=== PATIENT | male | born 1955 | race African-American/Black ===

== ENCOUNTER 2016-04-28 03:44 | Inpatient (IN) | payer OTHER ==
[~2016-04-28] VITALS: Ht 175.3 cm; Wt 80.4 kg
[~2016-04-28 03:44] MED LIST: AMOX1TAB61 PO; ASPI81TA2 PO; CARV12.5 PO; CARV40CP PO; CELE100C PO; CELE200C PO; DABI150C PO; DOXE100C PO; DOXE50CA PO; FERR-26 PO; FERR325T3 PO; FLUT1DIS3 IH; FURO40TA4 PO; HYDR-2868 PO; HYDR-2869 PO; LEVO50TA PO; LEVO50TA5 PO; LOSA100T6 PO; LOSA50TA6 PO; METO100T2 PO; MIRT30TA2 PO; NAPR500T3 PO; OXYC-250 PO; POTA20TA12 PO; POTA20TA82 PO; RANI150T2 PO; SOTA80TA PO; VENTOLIN HFA18 GM IH; VENTOLIN HFA18 GM INH
[2016-04-28 04:22] LABS: BASO % 1 % (0-3); EOS % 0 % (0-3); HEMATOCRIT 36.7 % (39.0-53.0); HEMOGLOBIN 11.7 g/dL (13.0-17.5); LYMPH # 0.4 x10^3/uL (1.0-4.8); LYMPH % 8 % (24-48); MEAN CORPUSCULAR HEMOGLOBIN 32 pg (25-35); MEAN CORPUSCULAR HGB CONC 32 g/dL (31-37); MEAN CORPUSCULAR VOLUME 99 fL (79-100); MONO % 10 % (0-9); NEUT % 82 % (31-73); PLATELET COUNT 121 x10^3/uL (140-400); RED CELL DISTRIBUTION WIDTH 15.3 % (11.5-14.5); WHITE BLOOD COUNT 4.9 x10^3/uL (4.0-11.0)
[2016-04-28] MEDS ORDERED: IPRATRPIUM/ALBUTEROL 0.5/2.5MG 3 ML NEBU. NEB ONE (04:30)
[2016-04-28 04:31] LABS: INR 1.5 (0.8-1.1)
[2016-04-28 04:34] LABS: CREATININE 1.3 mg/dL (0.7-1.3); GFR 67.7; POTASSIUM 4.8 mmol/L (3.5-5.1)
[2016-04-28 04:40] LABS: ALBUMIN 3.3 g/dL (3.4-5.0); ALBUMIN/GLOBULIN RATIO 0.6 (1.0-1.7); TOTAL BILIRUBIN 1.4 mg/dL (0.2-1.0); TOTAL PROTEIN 9.3 g/dL (6.4-8.2)
[2016-04-28 04:45] LABS: OBC FLU VALID
[2016-04-28] MEDS ORDERED: NITROGLYCERIN SUBLINGUAL 0.4 MG BOTTLE OF 25. SL PRN (05:00)
[2016-04-28] MEDS: MORPHINE SULFATE 4 MG/ML DISP.SYRIN. IV/SQ PRN ×2 (05:02→07:44)
[2016-04-28] MEDS ORDERED: CONTRAST GIVEN MC PRN (05:15)
[2016-04-28] MEDS ORDERED: FUROSEMIDE 40 MG/4 ML VIAL IVP ONE (05:15)
[2016-04-28] MEDS ORDERED: BENZONATATE 100 MG CAPSULE. PO ONE ×2 (05:15→12:45)
[2016-04-28] MEDS ORDERED: IOHEXOL 300 MG/ML 75 ML VIAL IV ONE (05:30)
[2016-04-28 05:31] LABS: BILIRUBIN,URINE SMALL (NEG); GLUCOSE,URINE NEGATIVE (NEG); NITRITE,URINE NEGATIVE (NEG); PROTEIN,URINE 30 mg/dL (NEG-TRACE)
[2016-04-28 05:36] LABS: BACTERIA,URINE 0 /HPF (0-FEW); SQUAMOUS EPITHELIAL CELL,UR MOD /LPF
--- NOTE | 2016-04-28 05:59 | RAD ---
PROCEDURE CT chest with contrast, pulmonary angiogram. HISTORY Shortness of air and cough. History DVT. TECHNIQUE Helical CT imaging of the chest is performed after 75 cc Omnipaque 300 IV contrast using pulmonary angiogram protocol. A coronal 3D MIP reconstruction is performed to better evaluate the pulmonary arteries. PQRS: One or more the following individualized dose reduction techniques were utilized for the study: 1. Automated exposure control. 2. Adjustment of the mA and/or kV according to patient size. 3. Use of iterative reconstruction technique. COMPARISON CT chest with contrast, pulmonary angiogram September 14, 2014. FINDINGS The pulmonary arteries are adequate contrast opacified. No CT evidence of pulmonary embolus. Cannot evaluate the lumen of the thoracic aorta due to limited contrast opacification. The great vessels are stable. Re- demonstrated nonunion at median sternotomy. There are upper median sternotomy wires. No obvious adenopathy in the chest. Subcentimeter bilateral hilar lymph nodes. Three vessel coronary artery disease. Changes of prior CABG. Stable cardiomegaly. Small pericardial effusion. Trace right pleural effusion. Paraseptal emphysema. Respiratory motion artifact in the lung bases. Mild bilateral lower lobe atelectasis. Upper lobe centrilobular nodules are still present. Extent is improved from prior study. Upper abdominal ascites. Cholecystectomy. There partially healed left anterolateral rib fractures. No compression fracture in the thoracic spine. IMPRESSION 1. No CT evidence of pulmonary embolus. 2. Upper lobe centrilobular nodules are improved. Differential considerations as per prior study. 3. Trace right pleural effusion. 4. Stable cardiomegaly. Small pericardial effusion. 5. Mild upper abdominal ascites. Electronically signed by: Miles Herbert MD (Apr 28, 2016 05:58:27)
[2016-04-28 06:29] LABS: PLT ESTIMATE DECREASED (ADEQUATE)
--- NOTE | 2016-04-28 07:48 | ED.ADGEN ---
Past Medical History Past Medical History: Bronchitis, CAD, COPD, CVA, Diabetes-Type II, High Cholesterol, Hypertension, PA Past Surgical History: Cholecystectomy, Coronary Bypass Surgery, Hip Replacement, Pacemaker, Other Additional Past Surgical Histo: MULTIPLE,BILAT HIP Alcohol Use: Occasionally Drug Use: None Adult General Chief Complaint Chief Complaint: SHORTNESS OF BREATH HPI HPI Patient is a 61 year old man, history of CAD, CHF, type 2 diabetes mellitus, hypertension, who presents emergency department via EMS with a complaint of cough, shortness of breath, and chest pain and pressure, that "feels like a brick on my chest". Patient states that beginning strains increasing shortness of breath and cough is productive of "foamy white stuff" yesterday. States had some increased swelling in his lower extremities as well. Potential subjective fevers, no chills, no nausea or vomiting, no sick contacts, no weakness numbness or tingling, no injuries. No complaints. Patient states he's been compliant with medications including his Lasix. Denies any recent travel or surgery, no history of DVT or PE. Review of Systems Review of Systems Constitutional: Denies fever or chills. [] Eyes: Denies change in visual acuity. [] HENT: Denies nasal congestion or sore throat. [] Respiratory: Cough and shortness of breath. Cardiovascular: Chest heaviness, cough, edema. GI: Denies abdominal pain, nausea, vomiting, bloody stools or diarrhea. [] : Denies dysuria. [] Musculoskeletal: Denies back pain or joint pain. [] Integument: Denies rash. [] Neurologic: Denies headache, focal weakness or sensory changes. [] Endocrine: Denies polyuria or polydipsia. [] Lymphatic: Denies swollen glands. [] Psychiatric: Denies depression or anxiety. [] Current Medications Current Medications Current Medications Medications (Trade) Dose Ordered Sig/Edilia Start Time Stop Time Status Last Admin Dose Admin Albuterol/ Ipratropium (Duoneb) 3 ml 1X ONCE 04/28/16 04:30 04/28/16 04:42 DC 04/28/16 04:37 3 ML Benzonatate (Tessalon Perle) 100 mg 1X ONCE 04/28/16 05:15 04/28/16 05:16 DC 04/28/16 05:01 100 MG Furosemide (Lasix) 80 mg 1X ONCE 04/28/16 05:15 04/28/16 05:16 DC 04/28/16 05:10 80 MG Info (Do NOT chart on this entry -- for MONITORING) 1 each PRN DAILY PRN 04/28/16 05:15 04/30/16 05:14 Iohexol (Omnipaque 300 Mg/ml) 75 ml 1X ONCE 04/28/16 05:30 04/28/16 05:31 DC Morphine Sulfate 4 mg PRN Q15MIN PRN 04/28/16 05:00 04/29/16 04:59 04/28/16 05:02 4 MG Nitroglycerin (Nitrostat) 0.4 mg PRN Q5MIN PRN 04/28/16 05:00 04/28/16 05:08 0.4 MG Allergies Allergies Allergies Coded Allergies Type Severity Reaction Last Updated Verified No Known Drug Allergies 03/16/13 No Physical Exam Physical Exam Constitutional: Well developed, well nourished, no acute distress, non-toxic appearance. [] HENT: Normocephalic, atraumatic, bilateral external ears normal, oropharynx moist, no oral exudates, nose normal. [] Eyes: PERRLA, EOMI, conjunctiva normal, no discharge. [] Neck: Normal range of motion, no tenderness, supple, no stridor. [] Cardiovascular:Heart rate regular rhythm, no murmur [] Lungs & Thorax: Bilateral breath sounds clear to auscultation [] Abdomen: Bowel sounds normal, soft, no tenderness, no masses, no pulsatile masses. [] Skin: Warm, dry, no erythema, no rash. [] Back: No tenderness, no CVA tenderness. [] Extremities: No tenderness, no cyanosis, no clubbing, ROM intact, no edema. [] Neurologic: Alert and oriented X 3, normal motor function, normal sensory function, no focal deficits noted. [] Psychologic: Affect normal, judgement normal, mood normal. [] Current Patient Data Vital Signs Vital Signs Date Time Temp Pulse Resp B/P Pulse Ox O2 Delivery O2 Flow Rate FiO2 04/28/16 06:00 90 88 Nasal Cannula 3 04/28/16 05:45 170/97 04/28/16 05:02 26 04/28/16 03:51 100.6 100.6 Lab Values Laboratory Tests Test 04/28/16 04:12 04/28/16 04:23 04/28/16 05:20 White Blood Count 4.9x10^3/uL (4.0-11.0) Red Blood Count 3.70x10^6/uL (4.30-5.70) L Hemoglobin 11.7g/dL (13.0-17.5) L Hematocrit 36.7% (39.0-53.0) L Mean Corpuscular Volume 99fL (79-100) Mean Corpuscular Hemoglobin 32pg (25-35) Mean Corpuscular Hemoglobin Concent 32g/dL (31-37) Red Cell Distribution Width 15.3% (11.5-14.5) H Platelet Count 121x10^3/uL (140-400) L Neutrophils (%) (Auto) 82% (31-73) H Lymphocytes (%) (Auto) 8% (24-48) L Monocytes (%) (Auto) 10% (0-9) H Eosinophils (%) (Auto) 0% (0-3) Basophils (%) (Auto) 1% (0-3) Neutrophils # (Auto) 4.0x10^3uL (1.8-7.7) Lymphocytes # (Auto) 0.4x10^3/uL (1.0-4.8) L Monocytes # (Auto) 0.5x10^3/uL (0.0-1.1) Eosinophils # (Auto) 0.0x10^3/uL (0.0-0.7) Basophils # (Auto) 0.0x10^3/uL (0.0-0.2) Segmented Neutrophils % 85% (35-66) H Lymphocytes % 4% (24-48) L Monocytes % 11% (0-10) H Platelet Estimate Decreased (ADEQUATE) Prothrombin Time 17.0SEC (11.7-14.0) H Prothrombin Time INR 1.5 (0.8-1.1) H D-Dimer (Debbi) 1.16ug/mlFEU (0.00-0.50) H Sodium Level 137mmol/L (136-145) Potassium Level 4.8mmol/L (3.5-5.1) Chloride Level 102mmol/L (98-107) Carbon Dioxide Level 22mmol/L (21-32) Anion Gap 13 (6-14) Blood Urea Nitrogen 21mg/dL (8-26) Creatinine 1.3mg/dL (0.7-1.3) Estimated GFR (Cockcroft-Gault) 67.7 BUN/Creatinine Ratio 16 (6-20) Glucose Level 74mg/dL (70-99) Calcium Level 9.0mg/dL (8.5-10.1) Total Bilirubin 1.4mg/dL (0.2-1.0) H Aspartate Amino Transferase (AST) 45U/L (15-37) H Alanine Aminotransferase (ALT) 19U/L (16-63) Alkaline Phosphatase 76U/L (46-116) Troponin I Quantitative < 0.017ng/mL (0.000-0.055) BP-Mse-M-Type Natriuretic Peptide 4025pg/mL (0-124) H Total Protein 9.3g/dL (6.4-8.2) H Albumin 3.3g/dL (3.4-5.0) L Albumin/Globulin Ratio 0.6 (1.0-1.7) L Lipase 114U/L (73-393) Influenza Type A Antigen Negative (NEGATIVE) Influenza Type B Antigen Negative (NEGATIVE) Urine Collection Type Unknown Urine Color Pamela Urine Clarity Clear Urine pH 6.0 Urine Specific [place] 1.025 Urine Protein 30mg/dL (NEG-TRACE) Urine Glucose (UA) Negativemg/dL (NEG) Urine Ketones (Stick) Tracemg/dL (NEG) Urine Blood Small (NEG) Urine Nitrite Negative (NEG) Urine Bilirubin Small (NEG) Urine Urobilinogen Dipstick 2.0mg/dL (0.2 mg/dL) Urine Leukocyte Esterase Small (NEG) Urine RBC 3-5/HPF (0-2) Urine WBC 5-10/HPF (0-4) Urine Squamous Epithelial Cells Mod/LPF Urine Bacteria 0/HPF (0-FEW) Urine Mucus Marked/LPF Laboratory Tests 04/28/16 04:12 Laboratory Tests 04/28/16 04:12 EKG EKG EC: Sinus rhythm, heart rate 95 bpm, right axis deviation with incomplete right bundle-branch block, QTC of 435, QRS of 94, moderate baseline artifact noted, patient with contour abnormalities noted in the lateral leads, no ST elevation or depression, abnormal ECG, does not meet STEMI criteria. As interpreted by me. Radiology/Procedures Radiology/Procedures [ [facility] [address] [place] [address] IMAGING REPORT Signed PATIENT: FARHAN BRYAN ACCOUNT: [id number] : 1955 LOCATION: ER AGE: 61 SEX: M EXAM STATUS: REG ER ORD. PHYSICIAN: DEE PATTON DO REASON: SOB/Hypoxia/hx DVT on anticoag PROCEDURE: CTA CHEST PROCEDURE CT chest with contrast, pulmonary angiogram. HISTORY Shortness of air and cough. History DVT. TECHNIQUE Helical CT imaging of the chest is performed after 75 cc Omnipaque 300 IV contrast using pulmonary angiogram protocol. A coronal 3D MIP reconstruction is performed to better evaluate the pulmonary arteries. PQRS: One or more the following individualized dose reduction techniques were utilized for the study: 1. Automated exposure control. 2. Adjustment of the mA and/or kV according to patient size. 3. Use of iterative reconstruction technique. COMPARISON CT chest with contrast, pulmonary angiogram September 14, 2014. FINDINGS The pulmonary arteries are adequate contrast opacified. No CT evidence of pulmonary embolus. Cannot evaluate the lumen of the thoracic aorta due to limited contrast opacification. The great vessels are stable. Re- demonstrated nonunion at median sternotomy. There are upper median sternotomy wires. No obvious adenopathy in the chest. Subcentimeter bilateral hilar lymph nodes. Three vessel coronary artery disease. Changes of prior CABG. Stable cardiomegaly. Small pericardial effusion. Trace right pleural effusion. Paraseptal emphysema. Respiratory motion artifact in the lung bases. Mild bilateral lower lobe atelectasis. Upper lobe centrilobular nodules are still present. Extent is improved from prior study. Upper abdominal ascites. Cholecystectomy. There partially healed left anterolateral rib fractures. No compression fracture in the thoracic spine. IMPRESSION 1. No CT evidence of pulmonary embolus. 2. Upper lobe centrilobular nodules are improved. Differential considerations as per prior study. 3. Trace right pleural effusion. 4. Stable cardiomegaly. Small pericardial effusion. 5. Mild upper abdominal ascites. Electronically signed by: Audra Herbert MD (Apr 28, 2016 05:58:27) DICTATED and SIGNED BY: AUDRA HERBERT MD DATE: 04/28/16 0558 CC: DEE PATTON DO; SAMM PADILLA MD ~ Course & Med Decision Making Course & Med Decision Making Pertinent Labs and Imaging studies reviewed. (See chart for details) Patient's noted to be hypoxic on arrival in the ED, oxygen saturation in the mid 80s, patient does not use oxygen at baseline, noted to have significant coughing as well, mild tachycardia. Patient was sent to liters nasal cannula, oxygen saturations are in the low to mid 90s. Due to hypoxia, tachycardia, and change from prior, CT of the chest was of obtained, which not reveal any evidence of pulmonary embolus, small pericardial effusion and home in very effusions noted. Laboratory studies are consistent with the physical diagnosis of congestive heart failure, patient received 40 mg of Lasix IV, double his daily dose, is agreeable for admission to the hospital for treatment of distant heart failure. Findings as above discussed with his primary care provider Dr. barahona, patient accepted to his service as a full admission, with bridge orders entered per her request. Dragon Disclaimer Dragon Disclaimer This electronic medical record was generated, in whole or in part, using a voice recognition dictation system. Departure Impression: Primary Impression: CHF (congestive heart failure) Additional Impression: Hypoxia Disposition: ADMITTED INPATIENT Admitting Physician: Other Condition: IMPROVED Problem Qualifiers Primary Impression: CHF (congestive heart failure) Congestive heart failure type: unspecified congestive heart failure type Congestive heart failure chronicity: acute on chronic Qualified Code: I50.9 - Heart failure, unspecified DEE PATTON DO Apr 28, 2016 07:48
--- NOTE | 2016-04-28 08:01 | RAD ---
Indication chest pain. A single view of the chest was obtained and is compared to an examination 02/22/2016. There is unchanged mild cardiomegaly. Postoperative changes and a prosthetic valve are noted as well as a bipolar cardiac pacing device. There is no consolidated pneumonia. There is perhaps very mild pulmonary vascular congestion. Significant pleural fluid is not seen. There is no pneumothorax. IMPRESSION: Stable cardiomegaly. No focal process. Suspect mild pulmonary vascular congestion
--- NOTE | 2016-04-28 08:07 | ACF ---
Admit Criteria Forms Admit Criteria Forms Admit Criteria Forms HEART FAILURE: COMMON COMPLICATIONS Clinical Indications for Inpatient Care (Place 'X' for any and all applicable criteria): Ongoing inpatient care may be indicated for heart failure with ANY ONE of the following (1)(2)(3)(4)(5): [ ]I. Ongoing need for care for primary condition requiring frequent therapy adjustments because of changes in cardiac function (eg, drug dosage changes for drugs that are renally metabolized) [ ]II. New-onset heart failure [ ]III. Heart failure with decreased urine output not responsive to attempts to optimize volume status [ ]IV. Acute cardiac ischemia causing or associated with failure [X]V. Complications of heart failure, including ANY ONE of the following: [ ]a) Pericardial effusion [ ]b) Symptomatic pleural effusion [ ]c) O2 saturation <90% or PO2 < 60 mm Hg (8.0 kPa) on room air or require baseline supplemental O2 [X]d) Tachypnea [X]e) Dyspnea [ ]f) Syncope [ ]g) Change in mental status [ ]h) Acute renal insufficiency that is severe (reduction of more than 50% in estimated glomerular filtration rate from baseline) or progressive reduction of more than 25% in estimated glomerular filtration rate from baseline, with creatinine continuing to rise) [ ]i) Hemodynamic instability [ ]j) Anasarca [ ]k) Clinically significant metabolic abnormalities due to heart failure (eg, new-onset metabolic acidosis) Extended stay beyond goal length of stay for primary condition may be needed until ALL of the following are present(1)(3): [ ]a) Stable and effective diuretic regimen established (or patient on stable dialysis regimen if in chronic renal failure) [ ]b) Breathing comfortably at rest [ ]c) Saturation of arterial oxygen greater than 90% or at acceptable baseline [ ]d) Pulmonary edema absent or improved [ ]e) Hemodynamic stability [ ]f) Volume status acceptable on oral medication [ ]g) Peripheral or sacral edema absent or improved [ ]h) Renal function stable and manageable at a lower level of care [ ]i) Complications (eg, pleural effusion) resolved or manageable at a lower level of care [ ]j) Patient or caregiver has received written discharge instructions or educational material addressing activity level, diet, discharge medications, follow-up appointment, weight monitoring, and what to do if symptoms worsen The original [facility] [employer] content created by [employer] has been revised. The portions of the content which have been revised are identified through the use of italic text or in bold, and [facility] has neither reviewed nor approved the modified material.All other unmodified content is copyright [facility]. Please see references footnoted in the original [facility] [employer] edition 2016 PETRA HARTLEY Apr 28, 2016 07:32
[2016-04-28 11:38] VITALS: BP 150/89
--- NOTE | 2016-04-28 11:43 | EKG ---
[facility] [address] [place] [address] Test Date: 2016-04-28 Test Time: 03:56:47 Pat Name: FARHAN BRYAN Department: Room: 254 1 Gender: M [employer]ician: : 1955 Requested By: DEE PATTON Order Number: [id number] Reading MD: Mario Mera Measurements Intervals [place] Rate: 95 P: MD: QRS: 120 QRSD: 94 T: 110 QT: 344 QTc: 435 Interpretive Statements ATRIAL FIBRILLATION. ABNORMAL RIGHT AXIS DEVIATION INCOMPLETE RIGHT BUNDLE BRANCH BLOCK QRS(T) CONTOUR ABNORMALITY CONSISTENT WITH INFERIOR INFARCT PROBABLY OLD T ABNORMALITY IN ANTERIOR LEADS ABNORMAL ECG RI6.01 Electronically Signed On 05-14-2016 9:48:59 [employer] by Mario Mera
[2016-04-28] MEDS: DABIGATRAN ETEXILATE 150 MG CAPSULE. PO SCH ×2 (13:32→21:08)
[2016-04-28] MEDS: METOPROLOL SUCC 24HR ER 100 MG TAB.ER.24H. PO SCH (13:32)
[2016-04-28] MEDS: LEVOTHYROXINE 50 MCG TABLET PO SCH (13:32)
[2016-04-28] MEDS: BENZONATATE 100 MG CAPSULE. PO SCH ×2 (13:32→21:08)
[2016-04-28] MEDS: FERROUS SULFATE 325 MG TABLET PO SCH (13:33)
[2016-04-28] MEDS: POTASSIUM CHLORIDE 20 MEQ TABLET.ER. PO SCH (13:33)
[2016-04-28] MEDS: LOSARTAN POTASSIUM 50 MG TABLET. PO SCH (13:33)
[2016-04-28] MEDS: OXYCODONE/APAP 10/325 TABLET. PO PRN ×2 (13:33→19:31)
[2016-04-28] MEDS: CELECOXIB 200 MG CAPSULE PO SCH (13:33)
[2016-04-28] MEDS: FUROSEMIDE 40 MG TABLET PO SCH (14:00)
[2016-04-28 14:55] VITALS: BP 106/70
[2016-04-28] MEDS: ALBUTEROL SULFATE 2.5 MG/3 ML NEBU. NEB SCH ×2 (15:54→19:27)
[2016-04-28] MEDS ORDERED: MORPHINE SULFATE 4 MG/ML DISP.SYRIN. IV PRN (16:30)
[2016-04-28] MEDS: CARVEDILOL 12.5 MG TABLET PO SCH (17:00)
[2016-04-28] MEDS: CEFTRIAXONE SODIUM 1 GM in IV NORMAL SALINE 50ML 50 ML IV SCH (17:46)
[2016-04-28] MEDS: methylPREDNISolone SOD SUCC PF 40 MG/ML VIAL. IV SCH ×2 (17:47→21:08)
[2016-04-28] MEDS: AZITHROMYCIN 250 MG TABLET PO SCH (17:47)
[2016-04-28 19:01] LABS: BARBITURATES NEG (NEG); BENZODIAZEPINES NEG (NEG); CANNABINOIDS POS (NEG); COCAINE POS (NEG); METHADONE NEG (NEG); OPIATES POS (NEG); PHENCYCLIDINE POS (NEG)
[2016-04-28 19:02] LABS: ETHANOL, URINE NEG (NEG)
--- NOTE | 2016-04-28 19:07 | HP ---
ADMIT DATE: 04/28/2016 HISTORY OF PRESENT ILLNESS: This is a 61-year-old black male who has several medical problems: 1. He has an ischemic cardiomyopathy with ejection fraction when last checked of 40-50%. He has had mitral valve repair and tricuspid valve repair, but they both recurred. 2. He stopped smoking 3 months ago, but does have underlying COPD and gets recurrent bronchitis. 3. He has had a hip replacement. He had severe infection in the hip. The hip joint was removed and thus he does not have a hip on the left side. The orthopedic surgeon tells me it is very painful and had advised me to give him Percocet, which he has been receiving. 4. He is a cocaine abuser. 5. He has had iron deficiency anemia. He is on iron supplements. 6. He has had atrial flutter. His rate is being controlled with beta blockers. 7. He has anxiety and depression. 8. He has been hypothyroid and is on thyroid supplements. 9. He has had hypertension, which has been under control. He states that he had a coughing bout yesterday. He just could not stop coughing. There was no production of sputum. He spat out some foamy material. After the cough, he started to have chest pain. There is no chest pain prior to the cough, but he did have very violent bouts of coughing. He had no swelling of his legs. He was thus coughing all night. He then called the ambulance at 3:00 a.m. and was brought into the Emergency Room. In the Emergency Room, a chest x-ray suggested mild pulmonary vascular congestion. He was given 80 mg of Lasix IV with which he said he had good diuresis, but continues to have severe cough. A CTA of the chest was obtained and there was no CT evidence of pulmonary embolism. There was a trace right pleural effusion. He stopped smoking 3 months ago. Prior to that, he smoked very little, just 2-3 cigarettes a day. He was never a heavy smoker according to him. He drinks about two drinks a day. He does not admit to taking drugs, but we have found cocaine in his urine. PRESENT MEDICATIONS: 1. Albuterol via nebulizer. 2. Aspirin 81 mg a day. 3. Coreg CR 40 mg a day. 4. Celebrex 100 mg a day. 5. Pradaxa 150 mg twice a day for the atrial arrhythmias. 6. Doxepin 200 mg at night. 7. Lasix 40 mg a day. 8. Synthroid 50 mcg a day. 9. Losartan 50 mg a day. 10. Toprol-XL 100 mg a day. 11. Remeron 60 mg at night. 12. Percocet 10/325 mg q.6 hours p.r.n. 13. Potassium chloride 20 mEq a day. 14. Ranitidine 150 mg twice a day. PHYSICAL EXAMINATION: GENERAL: He was quite restless and was coughing, but is nonproductive. VITAL SIGNS: The heart rate was 90 per minute. It did appear to be a sinus rhythm. The blood pressure was 150/90 prior to the Lasix and 106/70 after the Lasix. LUNGS: Showed bilateral wheezing. HEART: The heart sounds are normal. There is no murmur or gallop. ABDOMEN: Soft. EXTREMITIES: There is no edema of the legs. A chest x-ray showed cardiomegaly and mild pulmonary vascular congestion. An EKG is not available on [facility] but will be viewed on the [facility] ____. LABORATORY DATA: Hemoglobin was 11.7. The total WBC count was 4900 with 82% neutrophils. The BNP was 4025. The troponin was less than 0.017. IMPRESSION: 1. Acute asthmatic bronchitis. 2. Probable mild pulmonary vascular congestion. 3. Hypertension. 4. Consider drug abuse. He has received 80 mg of Lasix. I would like to treat him for acute asthmatic bronchitis with IV steroids and IV antibiotics. He has been coughing a lot. He complained of some chest pain. I believe it is chest wall pain. We will, however, trend the EKG and enzymes. SAMM PADILLA MD DR: ALESHIA/eldon JOB#: [id number] / [id number]
[2016-04-28 19:25] VITALS: BP 116/86
[2016-04-28] MEDS: MIRTAZAPINE 15 MG TABLET PO SCH (21:08)
[2016-04-28] MEDS: FAMOTIDINE 20 MG TABLET. PO SCH (21:08)
[2016-04-28] MEDS: DOXEPIN HCL 25 MG CAPSULE PO SCH (21:09)
[2016-04-28 23:36] VITALS: BP 139/91
[2016-04-29 03:35] VITALS: BP 146/94
[2016-04-29] MEDS: LEVOTHYROXINE 50 MCG TABLET PO SCH (05:00)
[2016-04-29] MEDS: OXYCODONE/APAP 10/325 TABLET. PO PRN ×4 (05:02→19:50)
[2016-04-29] MEDS: methylPREDNISolone SOD SUCC PF 40 MG/ML VIAL. IV SCH ×3 (05:05→22:26)
[2016-04-29 07:51] VITALS: BP 132/61
[2016-04-29] MEDS: ALBUTEROL SULFATE 2.5 MG/3 ML NEBU. NEB SCH ×4 (07:57→19:38)
[2016-04-29] MEDS: ASPIRIN 81 MG TAB.CHEW PO SCH (08:58)
[2016-04-29] MEDS: FAMOTIDINE 20 MG TABLET. PO SCH ×2 (08:58→19:50)
[2016-04-29] MEDS: AZITHROMYCIN 250 MG TABLET PO SCH (08:59)
[2016-04-29] MEDS: CELECOXIB 200 MG CAPSULE PO SCH (08:59)
[2016-04-29] MEDS: POTASSIUM CHLORIDE 20 MEQ TABLET.ER. PO SCH (08:59)
[2016-04-29] MEDS: BENZONATATE 100 MG CAPSULE. PO SCH ×3 (08:59→19:50)
[2016-04-29] MEDS: DABIGATRAN ETEXILATE 150 MG CAPSULE. PO SCH ×2 (08:59→19:49)
[2016-04-29] MEDS: FUROSEMIDE 40 MG TABLET PO SCH (08:59)
[2016-04-29] MEDS: FERROUS SULFATE 325 MG TABLET PO SCH (08:59)
[2016-04-29] MEDS: CARVEDILOL 12.5 MG TABLET PO SCH ×2 (09:05→17:38)
[2016-04-29] MEDS: METOPROLOL SUCC 24HR ER 100 MG TAB.ER.24H. PO SCH (09:06)
[2016-04-29] MEDS: LOSARTAN POTASSIUM 50 MG TABLET. PO SCH (09:06)
[2016-04-29 10:59] VITALS: BP 142/97
[2016-04-29 15:00] VITALS: BP 115/77
--- NOTE | 2016-04-29 15:05 | PDOC ---
Provider Note Provider Note He is afebrile. He continues to complain of a cough. Lungs show some wheezing. He is on steroids and antibiotics. Ambulate patient and consider discharge tomorrow. SAMM PADILLA MD Apr 29, 2016 15:05
--- NOTE | 2016-04-29 17:05 | RAD ---
Indication cough. Sputum. History of hypertension and COPD. PA and lateral views of the chest were obtained. Comparison is made to a study one day earlier. Postoperative changes are noted. Prosthetic valves are noted. Bipolar cardiac pacing device is noted. There are patchy pulmonary infiltrates in the lungs. There is perhaps a new patchy infiltrate in the right lower lobe. Superimposed area of pneumonia not excluded. Significant pleural fluid is not present. There is no pneumothorax. IMPRESSION: There is perhaps a new patchy infiltrate in the right lower lobe relative to the previous exam. Atelectasis or pneumonia is not excluded. Continued follow-up advised.
[2016-04-29] MEDS: PROMETH/CODEINE 6.25/10MG 5 ML SYRUP. PO PRN (17:36)
[2016-04-29] MEDS: CEFTRIAXONE SODIUM 1 GM in IV NORMAL SALINE 50ML 50 ML IV SCH (17:36)
[2016-04-29 19:10] VITALS: BP 113/81
[2016-04-29] MEDS: DOXEPIN HCL 25 MG CAPSULE PO SCH (19:49)
[2016-04-29] MEDS: MIRTAZAPINE 15 MG TABLET PO SCH (19:50)
[2016-04-29 23:30] VITALS: BP 134/91
[2016-04-30] MEDS: OXYCODONE/APAP 10/325 TABLET. PO PRN ×4 (01:47→21:13)
[2016-04-30] MEDS: PROMETH/CODEINE 6.25/10MG 5 ML SYRUP. PO PRN ×2 (01:47→08:55)
[2016-04-30 03:25] VITALS: BP 129/73
[2016-04-30] MEDS: LEVOTHYROXINE 50 MCG TABLET PO SCH (05:36)
[2016-04-30] MEDS: methylPREDNISolone SOD SUCC PF 40 MG/ML VIAL. IV SCH ×3 (05:36→22:41)
[2016-04-30 07:00] VITALS: BP 189/117
[2016-04-30] MEDS: ALBUTEROL SULFATE 2.5 MG/3 ML NEBU. NEB SCH ×4 (07:49→19:34)
[2016-04-30] MEDS: METOPROLOL SUCC 24HR ER 100 MG TAB.ER.24H. PO SCH (08:52)
[2016-04-30] MEDS: FAMOTIDINE 20 MG TABLET. PO SCH ×2 (08:52→21:08)
[2016-04-30] MEDS: BENZONATATE 100 MG CAPSULE. PO SCH ×3 (08:52→21:07)
[2016-04-30] MEDS: LOSARTAN POTASSIUM 50 MG TABLET. PO SCH (08:53)
[2016-04-30] MEDS: AZITHROMYCIN 250 MG TABLET PO SCH (08:53)
[2016-04-30] MEDS: DABIGATRAN ETEXILATE 150 MG CAPSULE. PO SCH ×2 (08:53→21:07)
[2016-04-30] MEDS: POTASSIUM CHLORIDE 20 MEQ TABLET.ER. PO SCH (08:53)
[2016-04-30] MEDS: ASPIRIN 81 MG TAB.CHEW PO SCH (08:54)
[2016-04-30] MEDS: FERROUS SULFATE 325 MG TABLET PO SCH (08:54)
[2016-04-30] MEDS: FUROSEMIDE 40 MG TABLET PO SCH (08:54)
[2016-04-30] MEDS: CARVEDILOL 12.5 MG TABLET PO SCH ×2 (08:55→17:00)
[2016-04-30] MEDS: CELECOXIB 200 MG CAPSULE PO SCH (09:00)
--- NOTE | 2016-04-30 09:34 | PDOC ---
Infectious Disease Note ROS ROS GEN: Denies fevers, chills, sweats HEENT: Denies blurred vision, sore throat CV: Denies chest pain RESP: Denies shortness of air, cough GI: Denies n/v/d NEURO: Denies confusion, dizziness MSK: Denies weakness, joint pain/swelling Vital Sign Vital Signs Vital Signs Date Time Temp Pulse Resp B/P Pulse Ox O2 Delivery O2 Flow Rate FiO2 04/30/16 08:59 20 Room Air 04/30/16 08:55 79 189/117 04/30/16 07:50 98 04/30/16 03:25 98.7 98.7 04/29/16 23:30 3.0 Physical Exam PHYSICAL EXAM GENERAL: NAD, Alert HEENT: PERRL, OC/OP NECK: Supple, no JVD, no LN LUNGS: Clear HEART: S1S2, no gallop, no murmur ABD: Soft, NT, no organomegaly, no rebound EXT: No edema, no cyanosis SCARF GLUER: Alert, oriented x 3, no focal neurologic deficit SKIN: No rash IV: ok Labs Lab Laboratory Tests Test 04/29/16 15:16 Glucose (Fingerstick) 182mg/dL (70-99) Objective Assessment Fever ? Bronchitis Substance abuse TERRELL Plan Plan of Care Agree with Rocephin/Azithromycin F/u labs and response Thank you # [id number] TYLER FINCH MD Apr 30, 2016 09:34
[2016-04-30 10:33] LABS: BASO % 0 % (0-3); EOS % 0 % (0-3); HEMATOCRIT 40.4 % (39.0-53.0); HEMOGLOBIN 13.1 g/dL (13.0-17.5); LYMPH # 0.4 x10^3/uL (1.0-4.8); LYMPH % 7 % (24-48); MEAN CORPUSCULAR HEMOGLOBIN 32 pg (25-35); MEAN CORPUSCULAR HGB CONC 32 g/dL (31-37); MEAN CORPUSCULAR VOLUME 98 fL (79-100); MONO % 4 % (0-9); NEUT % 88 % (31-73); PLATELET COUNT 110 x10^3/uL (140-400); RED BLOOD COUNT 4.13 x10^6/uL (4.30-5.70); RED CELL DISTRIBUTION WIDTH 15.6 % (11.5-14.5); WHITE BLOOD COUNT 5.9 x10^3/uL (4.0-11.0)
[2016-04-30 10:51] LABS: CREATININE 1.5 mg/dL (0.7-1.3); GFR 57.4
[2016-04-30 10:52] LABS: POTASSIUM 5.3 mmol/L (3.5-5.1)
[2016-04-30 11:00] VITALS: BP 154/100
[2016-04-30] MEDS: ANTI-COAG MONITOR BY PHARMACY. MC PRN (14:55)
[2016-04-30 15:00] VITALS: BP 174/117
[2016-04-30] MEDS: CEFTRIAXONE SODIUM 1 GM in IV NORMAL SALINE 50ML 50 ML IV SCH (17:00)
[2016-04-30] MEDS ORDERED: LABETALOL 20 MG/4 ML DISP.SYRIN. IVP ONE (17:00)
--- NOTE | 2016-04-30 17:31 | PDOC ---
PROGRESS NOTES Subjective Subjective Covering for Dr Macias Pt has no new complaint. BP running high again Objective Objective Vital Signs Date Time Temp Pulse Resp B/P Pulse Ox O2 Delivery O2 Flow Rate FiO2 04/30/16 17:00 Room Air 04/30/16 17:00 79 174/117 04/30/16 15:00 20 94 04/30/16 03:25 98.7 98.7 04/29/16 23:30 3.0 Intake and Output 04/30/16 07:00 Intake Total 840 ml Output Total 1025 ml Balance -185 ml Intake Oral 840 ml Output Urine Total 1025 ml Physical Exam Physical Exam No significant changes in cardiac exam Assessment Assessment CHF improved Will increase BP meds Dr Macias will return in am. Problems Medical Problems: (1) CHF (congestive heart failure) Status: Acute (2) Hypoxia Status: Acute Comment Review of Relevant I have reviewed the following items clark (where applicable) has been applied. Labs Laboratory Tests Test 04/28/16 18:40 04/29/16 15:16 04/30/16 10:20 Urine Opiates Screen Pos (NEG) Urine Methadone Screen Neg (NEG) Urine Barbiturates Neg (NEG) Urine Phencyclidine Screen Pos (NEG) Urine Amphetamine/Methamphetamine Neg (NEG) Urine Benzodiazepines Screen Neg (NEG) Urine Cocaine Screen Pos (NEG) Urine Cannabinoids Screen Pos (NEG) Urine Ethyl Alcohol Neg (NEG) Glucose (Fingerstick) 182mg/dL (70-99) White Blood Count 5.9x10^3/uL (4.0-11.0) Red Blood Count 4.13x10^6/uL (4.30-5.70) Hemoglobin 13.1g/dL (13.0-17.5) Hematocrit 40.4% (39.0-53.0) Mean Corpuscular Volume 98fL (79-100) Mean Corpuscular Hemoglobin 32pg (25-35) Mean Corpuscular Hemoglobin Concent 32g/dL (31-37) Red Cell Distribution Width 15.6% (11.5-14.5) Platelet Count 110x10^3/uL (140-400) Neutrophils (%) (Auto) 88% (31-73) Lymphocytes (%) (Auto) 7% (24-48) Monocytes (%) (Auto) 4% (0-9) Eosinophils (%) (Auto) 0% (0-3) Basophils (%) (Auto) 0% (0-3) Neutrophils # (Auto) 5.2x10^3uL (1.8-7.7) Lymphocytes # (Auto) 0.4x10^3/uL (1.0-4.8) Monocytes # (Auto) 0.3x10^3/uL (0.0-1.1) Eosinophils # (Auto) 0.0x10^3/uL (0.0-0.7) Basophils # (Auto) 0.0x10^3/uL (0.0-0.2) Sodium Level 132mmol/L (136-145) Potassium Level 5.3mmol/L (3.5-5.1) Chloride Level 99mmol/L (98-107) Carbon Dioxide Level 23mmol/L (21-32) Anion Gap 10 (6-14) Blood Urea Nitrogen 44mg/dL (8-26) Creatinine 1.5mg/dL (0.7-1.3) Estimated GFR (Cockcroft-Gault) 57.4 Glucose Level 123mg/dL (70-99) Calcium Level 8.0mg/dL (8.5-10.1) Laboratory Tests Test 04/30/16 10:20 White Blood Count 5.9x10^3/uL (4.0-11.0) Red Blood Count 4.13x10^6/uL (4.30-5.70) Hemoglobin 13.1g/dL (13.0-17.5) Hematocrit 40.4% (39.0-53.0) Mean Corpuscular Volume 98fL (79-100) Mean Corpuscular Hemoglobin 32pg (25-35) Mean Corpuscular Hemoglobin Concent 32g/dL (31-37) Red Cell Distribution Width 15.6% (11.5-14.5) Platelet Count 110x10^3/uL (140-400) Neutrophils (%) (Auto) 88% (31-73) Lymphocytes (%) (Auto) 7% (24-48) Monocytes (%) (Auto) 4% (0-9) Eosinophils (%) (Auto) 0% (0-3) Basophils (%) (Auto) 0% (0-3) Neutrophils # (Auto) 5.2x10^3uL (1.8-7.7) Lymphocytes # (Auto) 0.4x10^3/uL (1.0-4.8) Monocytes # (Auto) 0.3x10^3/uL (0.0-1.1) Eosinophils # (Auto) 0.0x10^3/uL (0.0-0.7) Basophils # (Auto) 0.0x10^3/uL (0.0-0.2) Sodium Level 132mmol/L (136-145) Potassium Level 5.3mmol/L (3.5-5.1) Chloride Level 99mmol/L (98-107) Carbon Dioxide Level 23mmol/L (21-32) Anion Gap 10 (6-14) Blood Urea Nitrogen 44mg/dL (8-26) Creatinine 1.5mg/dL (0.7-1.3) Estimated GFR (Cockcroft-Gault) 57.4 Glucose Level 123mg/dL (70-99) Calcium Level 8.0mg/dL (8.5-10.1) Microbiology 04/28/16 Urine Culture - Final, Complete 04/28/16 Urine Culture Result 1 (AGUILA) - Final, Complete Medications Current Medications Albuterol/ Ipratropium (Duoneb) 3 ml 1X ONCE NEB Last administered on 04:37; Start 04/28/16 at 04:30; Stop 04/28/16 at 04:42; Status DC Morphine Sulfate 4 mg PRN Q15MIN PRN IV/SQ PAIN GREATER THAN 3/10 Last administered on 04/28/16 07:44; Start 04/28/16 at 05:00; Stop 04/29/16 at 04:59 ; Status DC Benzonatate (Tessalon Perle) 100 mg 1X ONCE PO Last administered on 04/28/16 05:01; Start 04/28/16 at 05:15; Stop 04/28/16 at 05:16; Status DC Furosemide (Lasix) 80 mg 1X ONCE IVP Last administered on 04/28/16 05:10; Start 04/28/16 at 05:15; Stop 04/28/16 at 05:16; Status DC Nitroglycerin (Nitrostat) 0.4 mg PRN Q5MIN PRN SL CHEST PAIN Last administered on 04/28/16 05:08; Start 04/28/16 at 05:00 Iohexol (Omnipaque 300 Mg/ml) 75 ml 1X ONCE IV ; Start 04/28/16 at 05:30; Stop 04/28/16 at 05:31; Status DC Info (Do NOT chart on this entry -- for MONITORING) 1 each PRN DAILY PRN MC SEE COMMENTS; Start 04/28/16 at 05:15; Stop 04/30/16 at 05:14; Status DC Benzonatate (Tessalon Perle) 100 mg 1X ONCE PO ; Start 04/28/16 at 12:45; Stop 04/28/16 at 12:46; Status DC Albuterol Sulfate (Ventolin Neb Soln) 2.5 mg RTQID NEB Last administered on 12:18; Start 04/28/16 at 16:00 Aspirin (Children'S Aspirin) 81 mg DAILYWBKFT PO Last administered on 08:54; Start 04/29/16 at 08:00 Carvedilol (Coreg) 25 mg BIDWMEALS PO Last administered on 04/30/16 17:00; Start 04/28/16 at 17:00 Celecoxib (Celebrex) 200 mg DAILY PO Last administered on 04/30/16 09:00; Start 04/28/16 at 14:00 Dabigatran (Pradaxa) 150 mg BID PO Last administered on 04/30/16 08:53; Start 04/28/16 at 14:00 Doxepin HCl (Sinequan) 200 mg QHS PO Last administered on 04/29/16 19:49; Start 04/28/16 at 21:00 Ferrous Sulfate (Feosol) 325 mg DAILYWBKFT PO Last administered on 04/30/16 08 :54; Start 04/28/16 at 14:00 Furosemide (Lasix) 40 mg DAILY PO Last administered on 04/30/16 08:54; Start 04/28/16 at 14:00 Levothyroxine Sodium (Synthroid) 50 mcg DAILY07 PO Last administered on 05:36; Start 04/28/16 at 14:00 Losartan Potassium (Cozaar) 50 mg DAILY PO Last administered on 04/30/16 08:53 ; Start 04/28/16 at 14:00 Mirtazapine (Remeron) 60 mg QHS PO Last administered on 04/29/16 19:50; Start 04/28/16 at 21:00 Metoprolol Succinate (Toprol Xl) 100 mg DAILY PO Last administered on 08:52; Start 04/28/16 at 14:00 Oxycodone/ Acetaminophen (Percocet 10/325) 1 tab PRN Q4HRS PRN PO SEVERE PAIN Last administered on 04/30/16 17:00; Start 04/28/16 at 13:00 Potassium Chloride (Klor-Con) 20 meq DAILYWBKFT PO Last administered on 08:53; Start 04/28/16 at 14:00 Famotidine (Pepcid) 20 mg BID PO Last administered on 04/30/16 08:52; Start at 21:00 Benzonatate (Tessalon Perle) 100 mg [id number] PO Last administered on 04/30/16 13 :42; Start 04/28/16 at 14:00 Morphine Sulfate 4 mg PRN Q2HR PRN IV PAIN; Start 04/28/16 at 16:30 Methylprednisolone Sodium Succinate 40 mg 40 mg Q8HRS IV Last administered on 13:43; Start 04/28/16 at 17:00 Ceftriaxone Sodium/Sodium Chloride (Rocephin/Iv Sodium Chloride 0.9% 50ml) 50 ml @ 100 mls/hr Q24H IV Last administered on 04/30/16 17:00; Start 04/28/16 at 17:00 Azithromycin (Zithromax) 250 mg DAILY PO Last administered on 04/30/16 08:53; Start 04/28/16 at 17:00 Promethazine HCl/ Codeine (Phenergan With Codeine) 5 ml PRN Q4HRS PRN PO COUGH Last administered on 04/30/16 08:55; Start 04/29/16 at 17:30 Info (Anti-Coagulation Monitoring By Pharmacy) 1 each PRN DAILY PRN MC SEE COMMENTS Last administered on 04/30/16 14:55; Start 04/30/16 at 13:30 Labetalol HCl (Normodyne) 5 mg 1X ONCE IVP Last administered on 04/30/16t 16: 59; Start 04/30/16 at 17:00; Stop 04/30/16 at 17:01; Status DC Active Scripts Active Augmentin 875-125 Tablet (Amoxicillin/Potassium Clav) 1 Each Tablet 1 Tab PO BID Reported Ranitidine Hcl 150 Mg Tablet 150 Mg PO BID Remeron (Mirtazapine) 30 Mg Tab.rapdis 60 Mg PO Metoprolol Tartrate 100 Mg Tablet 100 Mg PO BID Levothyroxine Sodium 50 Mcg Tablet 50 Mcg PO DAILYAC Furosemide 40 Mg Tablet 40 Mg PO BID Ferrous Sulfate 325 Mg Tablet 325 Mg PO BID Pradaxa (Dabigatran Etexilate Mesylate) 150 Mg Capsule 150 Mg PO BID Celebrex (Celecoxib) 100 Mg Capsule 200 Mg PO DAILY 30 Days Aspirin 81 Mg Tab.chew 81 Mg PO DAILY Ventolin Hfa Inhaler (Albuterol Sulfate) 18 Gm Hfa.aer.ad 1 Puff INH DAILY Coreg Cr (Carvedilol Phosphate) 40 Mg Cpmp.24hr 1 Cap PO DAILY Potassium Chloride 20 Meq Tab.er.prt 1 Tab PO DAILY Losartan Potassium 50 Mg Tablet 50 Mg PO DAILY Synthroid (Levothyroxine Sodium) 50 Mcg Tablet 50 Mcg PO DAILY Doxepin Hcl 100 Mg Capsule 200 Mg PO HS Percocet 10-325 Mg Tablet (Oxycodone/Acetaminophen) 1 Each Tablet 1 Each PO PRN Q6HRS Furosemide 40 Mg Tablet 40 Mg PO BID Vitals/I & O Vital Sign - Last 24 Hours 04/29/16 04/29/16 04/29/16 04/29/16 17:38 19:10 19:39 19:50 Temp 97.3 97.3 Pulse 81 80 Resp 18 20 B/P 146/96 113/81 Pulse Ox 93 97 97 O2 Delivery Nasal Cannula Room Air Nasal Cannula O2 Flow Rate 3.0 1.0 04/29/16 04/29/16 04/30/16 04/30/16 20:00 23:30 01:47 02:54 Temp 98.1 98.1 Pulse 69 Resp 14 20 B/P 134/91 Pulse Ox 94 94 94 O2 Delivery Room Air Nasal Cannula Room Air O2 Flow Rate 3.0 04/30/16 04/30/16 04/30/16 04/30/16 03:25 07:00 07:50 08:00 Temp 98.7 98.7 Pulse 69 79 Resp 14 20 B/P 129/73 189/117 Pulse Ox 91 100 98 O2 Delivery Room Air Room Air Room Air Room Air 04/30/16 04/30/16 04/30/16 04/30/16 08:52 08:53 08:55 08:59 Pulse 79 79 79 Resp 20 B/P 189/117 189/117 189/117 O2 Delivery Room Air 04/30/16 04/30/16 04/30/16 04/30/16 10:50 11:00 12:18 15:00 Pulse 71 79 Resp 20 20 20 B/P 154/100 174/117 Pulse Ox 94 94 O2 Delivery Room Air Room Air Room Air Room Air 04/30/16 04/30/16 04/30/16 16:59 17:00 17:00 Pulse 79 79 B/P 174/117 174/117 O2 Delivery Room Air Intake and Output 04/29/16 04/29/16 04/30/16 15:00 23:00 07:00 Intake Total 840 ml Output Total 525 ml 500 ml Balance 315 ml -500 ml JEAN MCDANIEL MD Apr 30, 2016 17:31
[2016-04-30 19:30] VITALS: BP 154/110
[2016-04-30] MEDS: DOXEPIN HCL 25 MG CAPSULE PO SCH (21:07)
[2016-04-30] MEDS: MIRTAZAPINE 15 MG TABLET PO SCH (21:08)
[2016-04-30 23:00] VITALS: BP 138/106
--- NOTE | 2016-05-01 01:14 | CONS ---
DATE OF CONSULTATION: 04/30/2016 Patient is in room 254. REQUESTING PHYSICIAN: Dr. Macias. REASON FOR CONSULTATION: Pneumonia. HISTORY OF PRESENT ILLNESS: The patient is a 61-year-old -[place] gentleman with a known history of COPD and cardiomyopathy. He states his last became ill. Then, this past Saturday, he began to feel ill, which was approximately 3 days ago. He ran low-grade fevers, chills, had some congestion and cough and now he has been cough so much, he has some lower abdominal discomfort. A little bit of a headache, no complications passing his urine. No nausea, vomiting or diarrhea. He is only producing little bit of sputum. He presented to [facility] on the with complaints of feelings of chest tightness. He had a white count of 4.9 with 85% neutrophils. His creatinine was 1.4. Urine drug screen was positive for opiates, for PCP, cocaine, and cannabinoids. Urinalysis was not consistent with urinary tract infection. Influenza screen was negative. He underwent a CT scan of his chest, no evidence of any pulmonary embolisms. He has had some upper lobe centrilobular nodules that had improved with trace pleural effusion, moderate abdominal ascites. Repeat chest x-ray on the has some atelectasis or pneumonia not excluded with a new patchy right lower lobe infiltrate. He is on Rocephin and azithromycin. States he is feeling better and is preparing his breakfast. PAST MEDICAL HISTORY: Positive for ischemic cardiomyopathy, cocaine use, atrial flutter, anxiety, depression, hypothyroidism, hypertension, iron deficiency anemia, valvular insufficiency, COPD. PAST SURGICAL HISTORY: Positive for cholecystectomy and total hip replacement. REVIEW OF SYSTEMS: Otherwise negative except for mentioned above. ALLERGIES: No known drug allergies. SOCIAL HISTORY: He is and has polysubstance abuse as mentioned above. FAMILY HISTORY: Noncontributory. CURRENT MEDICATIONS: Include Rocephin, azithromycin, Tessalon Perles, Coreg, Celebrex, doxepin, Pepcid, Cozaar, Solu-Medrol. Other meds are available and have been reviewed in the chart. He is on Solu-Medrol. PHYSICAL EXAMINATION: VITAL SIGNS: He had a temperature at presentation of 100.6, currently 98.7, pulse 79, respirations 20. He is on room air. Blood pressure 189/117. CONSTITUTIONAL: He is cooperative, he is in no acute distress. He is sitting upright in bed, again preparing his breakfast. HEENT: Pupils are equal and reactive. Normal conjunctivae. Oral cavity, oropharynx is clear. NECK: Supple, good range of motion. LUNGS: Clear to auscultation. HEART: S1, S2, he has pacemaker without signs of any complications surrounding it. No murmur. ABDOMEN: Soft, nontender, nondistended. Positive bowel sounds. EXTREMITIES: No clubbing, cyanosis or gross edema. SKIN: Warm to touch without signs of rash. He has a tattoo in his right chest. NEUROLOGIC: He is nonfocal, moves all extremities. PSYCHIATRIC: Affect is appropriate. LABORATORY VALUES: White count 4.9, hemoglobin 11.7, platelets of 121, neutrophils are 85, lymphs were 4 at presentation. Glucose, yesterday, fingerstick was 182. Creatinine is 1.3. BNP pro was 4025. Again urinalysis not consistent with urinary tract infection. Influenza screen was all negative. Radiology reviewed in the history of present illness. IMPRESSION: 1. Fever. 2. Bronchitis. 3. Substance abuse. 4. Acute kidney injury. RECOMMENDATIONS: For now, agree with Rocephin and azithromycin. We will follow up on his labs and response. Dr. Macias, thank you for allowing us to participate in the patient's care. If you have any questions, please do not hesitate to contact me. TYLER FINCH MD DR: NOREEN/eldon JOB#: [id number] / [id number]
[2016-05-01 03:10] VITALS: BP 144/97
[2016-05-01] MEDS: methylPREDNISolone SOD SUCC PF 40 MG/ML VIAL. IV SCH ×2 (06:17→15:41)
[2016-05-01] MEDS: LEVOTHYROXINE 50 MCG TABLET PO SCH (06:17)
[2016-05-01] MEDS: ALBUTEROL SULFATE 2.5 MG/3 ML NEBU. NEB SCH ×3 (07:25→16:21)
[2016-05-01 07:50] VITALS: BP 166/124
[2016-05-01] MEDS: POTASSIUM CHLORIDE 20 MEQ TABLET.ER. PO SCH (08:00)
--- NOTE | 2016-05-01 08:13 | PDOC ---
Infectious Disease Note Subjective Subjective Better. Less cough and discomfort. Less sputum ROS ROS GEN: Denies fevers, chills, sweats HEENT: Denies blurred vision, sore throat CV: Denies chest pain RESP: Denies shortness of air, cough GI: Denies n/v/d NEURO: Denies confusion, dizziness MSK: Denies weakness, joint pain/swelling Vital Sign Vital Signs Vital Signs Date Time Temp Pulse Resp B/P Pulse Ox O2 Delivery O2 Flow Rate FiO2 05/01/16 07:50 98.0 80 22 166/124 95 Room Air 98.0 Physical Exam PHYSICAL EXAM GENERAL: NAD, Alert HEENT: PERRL, OC/OP- clear NECK: Supple, no JVD, no LN LUNGS: Clear HEART: S1S2, no gallop, no murmur- pacemaker clean ABD: Soft, NT, no organomegaly, no rebound EXT: No edema, no cyanosis [employer] DIRECTOR: Alert, oriented x 3, no focal neurologic deficit SKIN: No rash IV: ok Labs Lab Laboratory Tests Test 04/30/16 10:20 White Blood Count 5.9x10^3/uL (4.0-11.0) Red Blood Count 4.13x10^6/uL (4.30-5.70) Hemoglobin 13.1g/dL (13.0-17.5) Hematocrit 40.4% (39.0-53.0) Mean Corpuscular Volume 98fL (79-100) Mean Corpuscular Hemoglobin 32pg (25-35) Mean Corpuscular Hemoglobin Concent 32g/dL (31-37) Red Cell Distribution Width 15.6% (11.5-14.5) Platelet Count 110x10^3/uL (140-400) Neutrophils (%) (Auto) 88% (31-73) Lymphocytes (%) (Auto) 7% (24-48) Monocytes (%) (Auto) 4% (0-9) Eosinophils (%) (Auto) 0% (0-3) Basophils (%) (Auto) 0% (0-3) Neutrophils # (Auto) 5.2x10^3uL (1.8-7.7) Lymphocytes # (Auto) 0.4x10^3/uL (1.0-4.8) Monocytes # (Auto) 0.3x10^3/uL (0.0-1.1) Eosinophils # (Auto) 0.0x10^3/uL (0.0-0.7) Basophils # (Auto) 0.0x10^3/uL (0.0-0.2) Sodium Level 132mmol/L (136-145) Potassium Level 5.3mmol/L (3.5-5.1) Chloride Level 99mmol/L (98-107) Carbon Dioxide Level 23mmol/L (21-32) Anion Gap 10 (6-14) Blood Urea Nitrogen 44mg/dL (8-26) Creatinine 1.5mg/dL (0.7-1.3) Estimated GFR (Cockcroft-Gault) 57.4 Glucose Level 123mg/dL (70-99) Calcium Level 8.0mg/dL (8.5-10.1) Objective Assessment Fever ? Bronchitis Substance abuse TERRELL Plan Plan of Care D/c Rocephin begin Cefpodoxime thru 05/05 Complete Azithromycin course thru 05/02 F/u labs and response TYLER FINCH MD May 01, 2016 08:13
[2016-05-01] MEDS ORDERED: CEFPODOXIME PROXETIL 200 MG TABLET PO SCH (09:00)
[2016-05-01] MEDS: AZITHROMYCIN 250 MG TABLET PO SCH (09:32)
[2016-05-01] MEDS: LOSARTAN POTASSIUM 50 MG TABLET. PO SCH (09:32)
[2016-05-01] MEDS: FUROSEMIDE 40 MG TABLET PO SCH (09:33)
[2016-05-01] MEDS: ASPIRIN 81 MG TAB.CHEW PO SCH (09:33)
[2016-05-01] MEDS: CARVEDILOL 12.5 MG TABLET PO SCH ×2 (09:33→15:41)
[2016-05-01] MEDS: BENZONATATE 100 MG CAPSULE. PO SCH ×2 (09:33→15:40)
[2016-05-01] MEDS: FAMOTIDINE 20 MG TABLET. PO SCH (09:33)
[2016-05-01] MEDS: DABIGATRAN ETEXILATE 150 MG CAPSULE. PO SCH (09:33)
[2016-05-01] MEDS: METOPROLOL SUCC 24HR ER 100 MG TAB.ER.24H. PO SCH (09:33)
[2016-05-01] MEDS: CELECOXIB 200 MG CAPSULE PO SCH (09:33)
[2016-05-01] MEDS: FERROUS SULFATE 325 MG TABLET PO SCH (09:34)
[2016-05-01 10:32] VITALS: BP 176/118
[2016-05-01] MEDS: OXYCODONE/APAP 10/325 TABLET. PO PRN ×2 (14:15→17:50)
[2016-05-01] MEDS: ANTI-COAG MONITOR BY PHARMACY. MC PRN (14:40)
[2016-05-01 15:10] VITALS: BP 168/120
[2016-05-01 15:41] VITALS: BP 168/120
== END 2016-05-01 18:30 | disposition home health service (06) | DRG 291 ==
LOC: ER 03:44 → ED HOLD 06:10 → 2 SOUTH 11:20
PROVIDERS: ADMIT Specialist; ATTEND Specialist
DX: I11.0 Hypertensive heart disease with heart failure (principal); J96.01 Acute respiratory failure with hypoxia; J44.0 Chronic obstructive pulmonary disease with (acute) lower respiratory infection; I31.3 Pericardial effusion (noninflammatory); N17.9 Acute kidney failure, unspecified; R18.8 Other ascites; I50.23 Acute on chronic systolic (congestive) heart failure; J20.9 Acute bronchitis, unspecified; E03.9 Hypothyroidism, unspecified; E11.9 Type 2 diabetes mellitus without complications; E78.00 Pure hypercholesterolemia, unspecified; Z96.649 Presence of unspecified artificial hip joint; F14.10 Cocaine abuse, uncomplicated; F32.9 Major depressive disorder, single episode, unspecified; F41.9 Anxiety disorder, unspecified; I25.10 Atherosclerotic heart disease of native coronary artery without angina pectoris; I25.5 Ischemic cardiomyopathy; J45.909 Unspecified asthma, uncomplicated; I25.2 Old myocardial infarction; Z90.49 Acquired absence of other specified parts of digestive tract; Z95.1 Presence of aortocoronary bypass graft; Z95.0 Presence of cardiac pacemaker; Z79.82 Long term (current) use of aspirin; Z86.718 Personal history of other venous thrombosis and embolism; Z86.73 Personal history of transient ischemic attack (TIA), and cerebral infarction without residual deficits; Z87.891 Personal history of nicotine dependence; Z79.01 Long term (current) use of anticoagulants; Z79.899 Other long term (current) drug therapy
CPT/HCPCS: 36415; 71010; 71020; 71275; 80048; 80053; 81001; 82947; 83690; 83880; 84484; 85007; 85027; 85379; 85610; 87086; 87804; 93005; 94250; 94640; 96374; 96375; 96376; 99406; G0481; J0696; J1940; J2270; J2920; J3490; J7620; Q0144; 99285-25

== ENCOUNTER 2016-07-14 15:52 | Emergency (ER) | payer OTHER ==
[~2016-07-14] VITALS: Ht 175.3 cm; Wt 68.0 kg
[~2016-07-14 15:52] MED LIST changes: -SOTA80TA PO; +SOTA80TA48 PO
[2016-07-14] MEDS ORDERED: IPRATRPIUM/ALBUTEROL 0.5/2.5MG 3 ML NEBU. NEB ONE (16:30)
[2016-07-14 16:35] LABS: BASO % 1 % (0-3); EOS % 1 % (0-3); HEMATOCRIT 38.2 % (39.0-53.0); HEMOGLOBIN 12.6 g/dL (13.0-17.5); LYMPH # 0.7 x10^3/uL (1.0-4.8); LYMPH % 27 % (24-48); MEAN CORPUSCULAR HEMOGLOBIN 31 pg (25-35); MEAN CORPUSCULAR HGB CONC 33 g/dL (31-37); MEAN CORPUSCULAR VOLUME 94 fL (79-100); MONO % 15 % (0-9); NEUT % 58 % (31-73); PLATELET COUNT 125 x10^3/uL (140-400); RED BLOOD COUNT 4.06 x10^6/uL (4.30-5.70); RED CELL DISTRIBUTION WIDTH 15.3 % (11.5-14.5); WHITE BLOOD COUNT 2.7 x10^3/uL (4.0-11.0)
[2016-07-14] MEDS ORDERED: oxyCODONE/APAP 5/325 1 TAB TABLET PO ONE (16:45)
[2016-07-14 16:47] LABS: CALCIUM 8.3 mg/dL (8.5-10.1); CREATININE 1.2 mg/dL (0.7-1.3); GFR 74.2; POTASSIUM 3.4 mmol/L (3.5-5.1)
--- NOTE | 2016-07-14 16:48 | ED.ADGEN ---
Past Medical History Past Medical History: Bronchitis, CAD, COPD, CVA, Diabetes-Type II, High Cholesterol, Hypertension, MT, Other Additional Past Medical Histor: chronic back pain Past Surgical History: Cholecystectomy, Coronary Bypass Surgery, Hip Replacement, Pacemaker, Other Additional Past Surgical Histo: MULTIPLE,BILAT HIP Alcohol Use: Occasionally Drug Use: None Adult General Chief Complaint Chief Complaint: SHORTNESS OF BREATH HPI HPI Patient is a 61 year old female with history of COPD, CAD, eczema cardiomyopathy with congestive heart failure, hypertension, dyslipidemia and diabetes who presents with shortness of breath with wet productive cough with yellow lou sputum. Patient has progressive shortness of breath with productive cough over the past week. He is been utilizing his home albuterol inhaler nebulizer with limited improvement. He has not had fever chills, nausea vomiting or sweats. Denies chest pain or chest pressure. Shortness of breath is nonexertional. Patient does not require supplemental O2. Denies leg pain or swelling or other symptoms of congestive heart failure. No other acute symptoms or complaints. Review of Systems Review of Systems Review symptoms as per history of present illness. All other review symptoms are negative. Current Medications Current Medications Current Medications Medications (Trade) Dose Ordered Sig/Edilia Start Time Stop Time Status Last Admin Dose Admin Albuterol/ Ipratropium (Duoneb) 3 ml 1X ONCE 07/14/16 16:30 07/14/16 16:31 DC 07/14/16 16:34 3 ML Furosemide (Lasix) 40 mg 1X ONCE 07/14/16 18:00 07/14/16 18:01 DC Oxycodone/ Acetaminophen (Percocet 5/325) 1 tab 1X ONCE 07/14/16 16:45 07/14/16 16:46 DC 07/14/16 17:03 1 TAB Allergies Allergies Allergies Coded Allergies Type Severity Reaction Last Updated Verified No Known Drug Allergies 03/16/13 No Physical Exam Physical Exam Constitutional: Well developed, well nourished, no acute distress, non-toxic appearance. HENT: Normocephalic, atraumatic, bilateral external ears normal, oropharynx moist, no oral exudates, nose normal. Eyes: PERRLA, EOMI, conjunctiva normal. Neck: Normal range of motion. Cardiovascular:Heart rate regular rhythm, no murmur. Lungs & Thorax: Bilateral breath sounds clear to auscultation. Mildd diminished bilaterally, no rales rhonchi or wheezes. Bilaterally. Abdomen: Bowel sounds normal, soft, no tenderness, no masses, no pulsatile masses. Skin: Warm, dry. Back: No tenderness, no CVA tenderness. Extremities: No tenderness, no edema. Neurologic: Alert and oriented X 3, normal motor function, normal sensory function, no focal deficits noted. Psychologic: Affect normal, judgement normal, mood normal. Current Patient Data Vital Signs Vital Signs Date Time Temp Pulse Resp B/P (MAP) Pulse Ox O2 Delivery O2 Flow Rate FiO2 07/14/16 17:03 23 07/14/16 16:37 96 Room Air 07/14/16 16:00 99.8 97 121/74 (90) 99.8 Lab Values Laboratory Tests Test 07/14/16 16:00 07/14/16 16:48 White Blood Count 2.7 x10^3/uL (4.0-11.0) L Red Blood Count 4.06 x10^6/uL (4.30-5.70) L Hemoglobin 12.6 g/dL (13.0-17.5) L Hematocrit 38.2 % (39.0-53.0) L Mean Corpuscular Volume 94 fL (79-100) Mean Corpuscular Hemoglobin 31 pg (25-35) Mean Corpuscular Hemoglobin Concent 33 g/dL (31-37) Red Cell Distribution Width 15.3 % (11.5-14.5) H Platelet Count 125 x10^3/uL (140-400) L Neutrophils (%) (Auto) 58 % (31-73) Lymphocytes (%) (Auto) 27 % (24-48) Monocytes (%) (Auto) 15 % (0-9) H Eosinophils (%) (Auto) 1 % (0-3) Basophils (%) (Auto) 1 % (0-3) Neutrophils # (Auto) 1.6 x10^3uL (1.8-7.7) L Lymphocytes # (Auto) 0.7 x10^3/uL (1.0-4.8) L Monocytes # (Auto) 0.4 x10^3/uL (0.0-1.1) Eosinophils # (Auto) 0.0 x10^3/uL (0.0-0.7) Basophils # (Auto) 0.0 x10^3/uL (0.0-0.2) Sodium Level 137 mmol/L (136-145) Potassium Level 3.4 mmol/L (3.5-5.1) L Chloride Level 102 mmol/L (98-107) Carbon Dioxide Level 22 mmol/L (21-32) Anion Gap 13 (6-14) Blood Urea Nitrogen 18 mg/dL (8-26) Creatinine 1.2 mg/dL (0.7-1.3) Estimated GFR (Cockcroft-Gault) 74.2 BUN/Creatinine Ratio 15 (6-20) Glucose Level 128 mg/dL (70-99) H Calcium Level 8.3 mg/dL (8.5-10.1) L Total Bilirubin 0.6 mg/dL (0.2-1.0) Aspartate Amino Transferase (AST) 92 U/L (15-37) H Alanine Aminotransferase (ALT) 45 U/L (16-63) Alkaline Phosphatase 98 U/L (46-116) Creatine Kinase 77 U/L (39-308) Creatine Kinase MB (Mass) 0.8 ng/mL (0.0-3.6) Creatine Kinase MB Relative Index 1.0 % (0-4) EG-Zyy-[id number]-Type Natriuretic Peptide 929 pg/mL (0-124) H Total Protein 8.9 g/dL (6.4-8.2) H Albumin 2.9 g/dL (3.4-5.0) L Albumin/Globulin Ratio 0.5 (1.0-1.7) L Urine Opiates Screen Neg (NEG) Urine Methadone Screen Neg (NEG) Urine Barbiturates Neg (NEG) Urine Phencyclidine Screen Pos (NEG) Urine Amphetamine/Methamphetamine Neg (NEG) Urine Benzodiazepines Screen Neg (NEG) Urine Cocaine Screen Pos (NEG) Urine Cannabinoids Screen Pos (NEG) Urine Ethyl Alcohol Pos (NEG) Laboratory Tests 07/14/16 16:00 Laboratory Tests 07/14/16 16:00 EKG EKG [EKG: Sinus rhythm, chronic T-wave inversions and anterior lateral leadsunchanged from] most recent EKG dated 04/28/16. Radiology/Procedures Radiology/Procedures [Chest x-ray: No acute cardiopulmonary disease per preliminary ED read.] Impressions: Acute bronchitis with COPD exacerbation witH limited evidence of congestive heart failure . Urine drug screen also noted to positive for the presence of PCP , cocaine, cannabis and ethanol. Course & Med Decision Making Course & Med Decision Making Pertinent Labs and Imaging studies reviewed. (See chart for details) [DuoNeb, prednisone, lasix with improved symptoms. Percocet given for chronic pain. Patient admonished to discontinue risk due to high risk of heart disease intact. Recommend PCP follow-up. Return precautions reviewed. Dragon Disclaimer Dragon Disclaimer This electronic medical record was generated, in whole or in part, using a voice recognition dictation system. SHERYL WILKINSON DO July 14, 2016 16:48
[2016-07-14 16:52] LABS: ALBUMIN 2.9 g/dL (3.4-5.0); ALBUMIN/GLOBULIN RATIO 0.5 (1.0-1.7); TOTAL BILIRUBIN 0.6 mg/dL (0.2-1.0); TOTAL PROTEIN 8.9 g/dL (6.4-8.2)
[2016-07-14 16:56] LABS: CKMB MASS 0.8 ng/mL (0.0-3.6)
--- NOTE | 2016-07-14 16:59 | RAD ---
Indication chest pain. A single view of the chest was obtained and is compared to an examination 04/29/2016. Postoperative changes are noted as well as a cardiac pacing device and a prosthetic valve. A consolidated pneumonia is not seen. There is perhaps mild pulmonary vascular congestion. Clinical correlation advised. Significant pleural fluid is not seen and there is no pneumothorax. Heart size is unchanged. IMPRESSION: Suspect mild pulmonary vascular congestion. No consolidated pneumonia is seen
[2016-07-14 17:05] LABS: BARBITURATES NEG (NEG); BENZODIAZEPINES NEG (NEG); CANNABINOIDS POS (NEG); COCAINE POS (NEG); METHADONE NEG (NEG); OPIATES NEG (NEG); PHENCYCLIDINE POS (NEG)
[2016-07-14] MEDS ORDERED: FUROSEMIDE 40 MG/4 ML VIAL. IVP ONE (18:00)
[2016-07-14] MEDS ORDERED: predniSONE 10 MG TABLET PO ONE (18:45)
[2016-07-14 18:57] VITALS: BP 153/92
--- NOTE | 2016-07-15 12:00 | EKG ---
[facility] [address] [place] [address] Test Date: 2016-07-14 Test Time: 16:07:53 Pat Name: FARHAN BRYAN Department: Room: Gender: M Auto Parker: : 1955 Requested By: SHERYL WILKINSON Order Number: [id number] Reading MD: Sangeetha Macias Measurements Intervals [place] Rate: 98 P: 56 SD: 164 QRS: 113 QRSD: 90 T: 156 QT: 372 QTc: 477 Interpretive Statements SINUS RHYTHM COMPLEX(ES) WITH ABERRANT INTRAVENTRICULAR CONDUCTION ATRIAL PREMATURE COMPLEX(ES) ABNORMAL RIGHT AXIS DEVIATION INCOMPLETE RIGHT BUNDLE BRANCH BLOCK ST & T ABNORMALITY, CONSIDER ANTERIOR ISCHEMIA T ABNORMALITY IN LATERAL LEADS Electronically Signed On 07-15-2016 18:17:45 CDT by Sangeetha Macias
== END 2016-07-14 19:03 | disposition home or self-care (01) ==
LOC: ER 15:52
DX: J44.1 Chronic obstructive pulmonary disease with (acute) exacerbation (principal); J20.9 Acute bronchitis, unspecified; I50.9 Heart failure, unspecified; I11.0 Hypertensive heart disease with heart failure; E11.9 Type 2 diabetes mellitus without complications; E78.00 Pure hypercholesterolemia, unspecified; G89.29 Other chronic pain; I25.10 Atherosclerotic heart disease of native coronary artery without angina pectoris; J44.0 Chronic obstructive pulmonary disease with (acute) lower respiratory infection; Z86.73 Personal history of transient ischemic attack (TIA), and cerebral infarction without residual deficits; Z95.0 Presence of cardiac pacemaker; Z90.49 Acquired absence of other specified parts of digestive tract; Z95.1 Presence of aortocoronary bypass graft
CPT/HCPCS: 36415; 71010; 80053; 80305; 80320; 82550; 82553; 83880; 84484; 85027; 93005; 94250; 94640; 96374; 99285; J1940; J7512; J7620; G0481